=== PATIENT | female | born 2000 | race Caucasian/White ===

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

== ENCOUNTER 2021-12-12 00:21 | Inpatient (IN) | payer BC, OTHER ==
[~2021-12-12] VITALS: Ht 160 cm; Wt 83.9 kg
--- NOTE | ~2021-12-12 | OR ---
[facility] [address], [place] [address] Draft DATE OF OPERATION: 12/12/2021 SURGEON: Rommel Molina DO PLATFORM INSPECTOR: Miesha. PROCEDURE: Primary low transverse . PREOPERATIVE DIAGNOSIS: intolerance to labor, remote from delivery, anxiety and depression, 39 weeks gestation. POSTOPERATIVE DIAGNOSIS: Term , delivered, anxiety and depression, viable term male . ANESTHESIA: Epidural. BLOOD LOSS: 500 mL. COMPLICATIONS: None. FINDINGS: Viable term male weighing 5 pounds 14 ounces in an asynclitic left occiput posterior position. Apgars 7 and 9 at 1 and 5 minutes respectively. Normal-appearing bilateral tubes and ovaries. No evidence of intra-abdominal adhesions. INDICATION: Recurrent variables, nonresponsive to amnioinfusion, IV fluid bolus, maternal repositioning, remote from delivery. DESCRIPTION OF PROCEDURE: The patient was taken back to the operating room. She was given clindamycin and azithromycin. She was positioned in supine position with a leftward tilt. Epidural was bolused per anesthesia. She was prepped and draped in normal sterile fashion. A Pfannenstiel incision was made with a scalpel and carried down to the underlying layer PATIENT NAME: MICKEY NORTH OPERATIVE REPORT DATE OF : 01 REPORT #: [id number] PHYSICIAN: ROMMEL MOLINA DO PCP: MELANIE BUCIO PAC REPORT IS CONFIDENTIAL AND NOT TO BE RELEASED WITHOUT AUTHORIZATION [facility] [address], [place] [address] Draft of fascia, which was nicked in midline, extended laterally with Hillman scissors. Inferior margin of fascia was grasped and elevated with Kevon clamps. Underlying rectus muscle was dissected off with blunt and sharp dissection with Hillman scissors. Inferior margin was released. The superior margin was grasped, elevated with Kevon clamps. Underlying rectus muscle dissected off with blunt and sharp dissection with Hillman scissors. Peritoneum was entered bluntly and extended with lateral traction. Romel retractor was placed without difficulty. Hysterotomy was made with a scalpel with entry into the uterus performed bluntly. This was extended laterally with inferior and superior traction. 's head was elevated with slight difficulty due to the asynclitic positioning hysterotomy and delivered through without further difficulty. No nuchal cord was noted. Cord was immediately clamped and cut and baby was handed off to awaiting nursery personnel including respiratory therapist and security field supervisor for further resuscitation. Cord blood was collected for type and Anna and segment of cord was set aside, doubly clamped for cord gases, which were collected. Placenta was manually extracted and noted to be intact with marginal insertion. Uterus was cleared of clots and debris. Hysterotomy was closed in two layer closure, 1st with 0 Monocryl in a running locked fashion, second layer with 0 Monocryl in an imbricating manner. Oozing was noted at the midline and a [id number] suture was placed with 0 Monocryl with resulting hemostasis. The pelvis was suction irrigated with warm sterile saline with hemostasis again noted. Romel retractor was removed. Peritoneum was closed with 2-0 Vicryl in a running fashion. Rectus muscle was then suction irrigated with warm sterile saline. Perforating vessels cauterized with Bovie cautery. Rectus was reapproximated at midline with 0 Vicryl in a simple interrupted fashion x2 sutures stitches. Fascia was closed with two separate sutures working 1st from right apex to midline and from left apex midline meeting in the middle. Subcutaneous layer was inspected and suction irrigated with warm sterile saline. Perforating vessels were cauterized with Bovie cautery. Once hemostatic, subcutaneous layer was reapproximated with 3-0 Vicryl in a running fashion. The skin was closed with skin clips. Uterus was Crede'd with minimal bleeding noted. Sponge and instrument counts were correct x2 and the patient remained in the OR for a TAP block placement per Anesthesia. DO CJ Sosa/PAYTONL /[id number] PATIENT NAME: MICKEY NORTH OPERATIVE REPORT DATE OF : 01 REPORT #: [id number] PHYSICIAN: ROMMEL MOLINA DO PCP: MELANIE BUCIO PAC REPORT IS CONFIDENTIAL AND NOT TO BE RELEASED WITHOUT AUTHORIZATION [facility] [address], [place] [address] Draft Copies: ~ PATIENT NAME: CANMICKEY OPERATIVE REPORT DATE OF : 01 REPORT #: [id number] PHYSICIAN: ROMMEL MOLINA DO PCP: MELANIE BUCIO PAC REPORT IS CONFIDENTIAL AND NOT TO BE RELEASED WITHOUT AUTHORIZATION
[~2021-12-12 00:21] MED LIST changes: +MACROBID 100 M100 MG PO; +PRENATAL GUMMI1 EACH PO
--- NOTE | 2021-12-12 00:51 | NUR ---
COVID 19 SWAB DONE TO BOTH NARES AND SENT TO IN HOUSE LAB.
--- NOTE | 2021-12-12 13:14 | PR ---
[facility] [address] [place], [place] [address] Signed Progress Notes IP Datetime Report Generated by CPN: 12/12/2021 13:14 PROGRESS NOTES: [id number] Impression: Normal Progression of Labor; Reassuring Heart Rate Plan: Continue Present Management VITAL SIGNS: [id number] Vital Signs: Reviewed; Within Normal Limits EXAM: [id number] Dilatation: 2.5 Effacement: 80 Station: -1 Contractions: ctx q 2-3 min MEMBRANES: [id number] Membranes Status: Ruptured Comments: Progressing well, s/p cytotec x 3, then SROM at 1200. Plan recheck at 2pm, sooner if needed. Epidural ok upon request, discussed bath, movement for pain mgmt in the meantime. Currently on the birthing ball breathing through contractions. FETUS A: [id number] FHR Baseline: 120 Variability: Moderate 6-25bpm Accelerations: 15X15 Decelerations: None FHR Category: Category I Presentation: Vertex Comments on Fetus A: No evidence of acidemia FETUS B: [id number] Signing Physician: Rommel Molina DO Copies: ~ *Electronically Signed* 12/12/21 1314 ROMMEL MOLINA DO PATIENT NAME: MICKEY NORTH PROGRESS NOTE DATE OF : 01 PHYSICIAN: ROMMEL MOLINA DO RPT #: [id number] REPORT IS CONFIDENTIAL AND NOT TO BE RELEASED WITHOUT AUTHORIZATION
--- NOTE | 2021-12-12 18:28 | PR ---
[facility] [address] [facility] [place], [place] [address] Signed Progress Notes IP Datetime Report Generated by CPN: 12/12/2021 18:28 PROGRESS NOTES: [id number] Impression: Normal Progression of Labor; Reassuring Heart Rate Plan: Continue Present Management VITAL SIGNS: [id number] Vital Signs: Reviewed; Within Normal Limits EXAM: [id number] Dilatation: 6.5 Effacement: 90 Station: -2 Contractions: ctx q 2-3 min MEMBRANES: [id number] Membranes Status: Ruptured Comments: Progressing well. Comfortable with epidural, not feeling contractions. FETUS A: [id number] FHR Baseline: 120 Variability: Moderate 6-25bpm Accelerations: 15X15 Decelerations: None FHR Category: Category I Presentation: Vertex Comments on Fetus A: No evidence of acidemia FETUS B: [id number] Signing Physician: Rommel Molina DO Copies: ~ *Electronically Signed* 12/12/21 1828 ROMMEL MOLINA DO PATIENT NAME: CANMICKEY PROGRESS NOTE DATE OF : 01 PHYSICIAN: ROMMEL MOLINA DO [facility] #: [id number] REPORT IS CONFIDENTIAL AND NOT TO BE RELEASED WITHOUT AUTHORIZATION
--- NOTE | 2021-12-12 20:16 | PR ---
[facility] [address] [facility] [place], [place] [address] Signed Progress Notes IP Datetime Report Generated by CPN: 12/12/2021 20:16 PROGRESS NOTES: [id number] Impression: Reassuring Heart Rate Plan: Continue Present Management VITAL SIGNS: [id number] Vital Signs: Reviewed; Within Normal Limits EXAM: [id number] Dilatation: 7.0 Effacement: 90 Station: -2 Contractions: ctx q 2-3 min MEMBRANES: [id number] Membranes Status: Ruptured Comments: S/p cytotec x 3, SROM, epidural Steady cervical dilation, comfortable with epidural Continue maternal repositioning Recheck in 1 hour FETUS A: [id number] FHR Baseline: 120 Variability: Moderate 6-25bpm Accelerations: 15X15 Decelerations: None FHR Category: Category I Presentation: Vertex Comments on Fetus A: No evidence of acidemia FETUS B: [id number] Signing Physician: Rommel Molina DO Copies: ~ *Electronically Signed* 12/12/21 ROMMEL SANCHEZ DO PATIENT NAME: MICKEY NORTH PROGRESS NOTE DATE OF : 01 PHYSICIAN: ROMMEL MOLINA DO RPT #: [id number] REPORT IS CONFIDENTIAL AND NOT TO BE RELEASED WITHOUT AUTHORIZATION
--- NOTE | 2021-12-12 21:12 | PR ---
[facility] [address] [place], [place] [address] Signed Progress Notes IP Datetime Report Generated by CPN: 12/12/2021 21:12 PROGRESS NOTES: [id number] Impression: Reassuring Heart Rate Procedures: Intrauterine Pressure Catheter; Amnio Infusion Plan: Continue Present Management VITAL SIGNS: [id number] Vital Signs: Reviewed; Within Normal Limits EXAM: [id number] Dilatation: 7.0 Effacement: 90 Station: -2 Contractions: ctx q 2-3 min MEMBRANES: [id number] Membranes Status: Intact Comments: Pt comfortable with epidural, still not feeling contractions Discussed poor tracing of contractions, IUPC placed without difficulty. Audible deep decelerations present with contractions, discussed amnioinfusion with initial bolus [id number] over 30 minutes, than 125mL/hR. Maternal IVB fluid bolus with 500mL initiated. Pt elects to proceed FETUS A: [id number] FHR Baseline: 120 Variability: Moderate 6-25bpm Accelerations: 15X15 Decelerations: None FHR Category: Category I Presentation: Vertex Comments on Fetus A: No evidence of acidemia FETUS B: [id number] Signing Physician: Rommel Molina DO Copies: ~ *Electronically Signed* 12/12/212111 ROMMEL MOLINA DO PATIENT NAME: MICKEY NORTH PROGRESS NOTE DATE OF : 01 PHYSICIAN: ROMMEL MOLINA DO RPT #: [id number] REPORT IS CONFIDENTIAL AND NOT TO BE RELEASED WITHOUT AUTHORIZATION
--- NOTE | 2021-12-12 21:33 | PR ---
[facility] [address] [place], [place] [address] Signed Progress Notes IP Datetime Report Generated by CPJohnathan: 12/12/2021 21:33 PROGRESS NOTES: [id number] Impression: Non-reassuring Heart Rate Procedures: Intrauterine Pressure Catheter; Amnio Infusion Plan: Deliver- Section VITAL SIGNS: [id number] Vital Signs: Reviewed; Within Normal Limits EXAM: [id number] Dilatation: 7.0 Effacement: 90 Station: -2 Contractions: ctx q 2-3 min MEMBRANES: [id number] Membranes Status: Ruptured Comments: Recheck with worsening/ deepening variables. Cervix with no additional dilation, beginning to swell. Terbutaline administered Risks, benefits, alternatives to non-reassuring heart tones remote from delivery were discussed with pt and her sister, at bedside. Discussed increased risks of bleeding, infection, pain, damage to surrounding structures. Discussed we do not perform TOLAC at this hospital, future delivery would be via repeat . Pt verbalizes understanding and elects to proceed with . Confirmed anaphylaxis to penicillin, unknown tolerance of cephalosporins. Ordered azithromycin and clindamycin. Anticipate TXA 1g with delivery. Anesthesia notified, OR crew called for Stat . FETUS A: [id number] FHR Baseline: 120 Variability: Moderate 6-25bpm Accelerations: 15X15 Decelerations: None FHR Category: Category I Presentation: Vertex Comments on Fetus A: No evidence of acidemia FETUS B: [id number] Signing Physician: Rommel Molina DO *Electronically Signed* 12/12/212132 ROMMEL MOLINA DO PATIENT NAME: CANMICKEY PROGRESS NOTE DATE OF : 01 PHYSICIAN: ROMMEL MOLINA DO RPT #: [id number] REPORT IS CONFIDENTIAL AND NOT TO BE RELEASED WITHOUT AUTHORIZATION
--- NOTE | 2021-12-12 23:47 | NUR ---
12/12/21 2347 Natalia Garcia 2258-PATIENT BACK TO ROOM 5 ON RA. PATIENT IS AWAKE. RESP EVEN AND UNLABORED. PATIENT VERY SHAKY. UNABLE TO OBTAIN A ACCURATE BP AT THIS TIME. BED PLUGGED IN AND BED RAILS UP. 2300-PATIENT CONTINUES TO SHAKY. UNABLE TO OBTAIN ACCURATE BP AT THIS TIME. 2305-BP CUFF REPOSITIONED AND [facility] RN HELPING KEEP PATIENT'S ARM STILL. VSS. 2310-HOB ELEVATED. PATIENT HOLDING BABY. PATIENT IS NO LONGER SHAKING. PATIENT DENIES PAIN OR NAUSEA. 2320-PATIENT IS NURSING. DENIES PAIN OR NAUSEA. 2330-PATIENT IS NURSING. NO OTHER NEEDS AT THIS TIME. REPORT GIVEN TO [facility] RN.
--- NOTE | 2021-12-13 09:59 | PR ---
[facility] [facility] [address] [facility] [address] [facility] [place], [place] [address] Signed PP Progress Notes Datetime Report Generated by CPN: 12/13/2021 09:59 SUBJECTIVE: [id number] Pain: Within Normal Limits Nausea/Vomiting: Denies Flatus: No Bowel Movement: No Vital Signs: [id number] Vital Signs: Reviewed; Within Normal Limits Cardiovascular: Normal Respiratory: Normal Abdomen/Uterus: Normal Lochia: Normal Breasts: Normal Extremities: Normal Incision: Normal Progress: Normal Exam Comments: NAD, standing at bedside by bassinet RRR No dyspnea/ retractions FFBU, Abd SNTND Incision c/d/i, dressing without strikethrough Ext: trace edema BL IMPRESSION/PLAN/PROCEDURES: [id number] Impression: Normal Progression; Difficulties Plan: Continue Present Management; Consult Progress Notes: Pt is a 21 yo POD#1 s/p PLTCS for intolerance to labor - Signing Physician: Rommel Molina DO Copies: ~ *Electronically Signed* 12/13/21 0959 ROMMEL MOLINA DO PATIENT NAME: MICKEY NORTH PROGRESS NOTE DATE OF : 01 PHYSICIAN: ROMMEL MOLINA DO RPT #: [id number] REPORT IS CONFIDENTIAL AND NOT TO BE RELEASED WITHOUT AUTHORIZATION
--- NOTE | 2021-12-14 12:29 | PR ---
[facility] [address] [place], [place] [address] Signed PP Progress Notes Datetime Report Generated by CPN: 12/14/2021 12:29 SUBJECTIVE: [id number] Pain: Within Normal Limits Nausea/Vomiting: Denies Flatus: Yes Bowel Movement: No Vital Signs: [id number] Vital Signs: Reviewed; Within Normal Limits Cardiovascular: Normal Respiratory: Normal Abdomen/Uterus: Normal Lochia: Normal Breasts: Normal Extremities: Normal Incision: Normal Progress: Abnormal Exam Comments: NAD, sitting up in bed nursing baby RRR No dyspnea/ retractions Abd SNTND, FFBU Incision c/d/i, moderate superficial bruising superior and inferior to incision Neg Mahsa's BL IMPRESSION/PLAN/PROCEDURES: [id number] Impression: Normal Progression Plan: Continue Present Management; Consult Progress Notes: POD#2 s/p PLTCS for NRFHT -continue efforts/ support -ambulating, voiding, tolerating regular diet, +flatus, pain well-controlled with orals -undecided re: contraception Anticipate DC to home tomorrow Signing Physician: Rommel Molina DO *Electronically Signed* 12/14/21 1229 ROMMEL MOLINA DO PATIENT NAME: MICKEY NORTH PROGRESS NOTE DATE OF : 01 PHYSICIAN: ROMMEL MOLINA DO RPT #: [id number] REPORT IS CONFIDENTIAL AND NOT TO BE RELEASED WITHOUT AUTHORIZATION
--- NOTE | 2021-12-15 11:33 | PR ---
[facility] [address] [place], [place] [address] Signed PP Progress Notes Datetime Report Generated by CPN: 12/15/2021 11:33 SUBJECTIVE: [id number] Pain: Within Normal Limits Nausea/Vomiting: Denies Flatus: Yes Bowel Movement: No Vital Signs: [id number] Vital Signs: Reviewed; Within Normal Limits Cardiovascular: Normal Respiratory: Normal Abdomen/Uterus: Normal Lochia: Normal Breasts: Normal Extremities: Normal Incision: Normal Progress: Normal Exam Comments: NAD, sitting up in bed nursing baby RRR No dyspnea/ retractions Abd SNTND, FFBU Incision c/d/i, moderate superficial bruising superior and inferior to incision Neg Mahsa's BL IMPRESSION/PLAN/PROCEDURES: [id number] Impression: Normal Progression Plan: Continue Present Management; Discharge Progress Notes: POD#3 s/p PLTCS -ambulating, voiding, tolerating regular diet. Pain controlled with orals, +flatus, awaiting BM -reviewed bruising, plan for staple removal in office on Sunday -undecided re: contraception -breast and bottle feeding Signing Physician: Rommel Molina DO Copies: ~ *Electronically Signed* 12/15/21 1133 ROMMEL MOLINA DO PATIENT NAME: MICKEY NORTH PROGRESS NOTE DATE OF : 01 PHYSICIAN: ROMMEL MOLINA DO RPT #: [id number] REPORT IS CONFIDENTIAL AND NOT TO BE RELEASED WITHOUT AUTHORIZATION
== END 2021-12-15 13:45 | disposition home or self-care (01) | DRG 787 ==
LOC: FBC 00:21
PROVIDERS: ADMIT Obstetrics & Gynecology; ATTEND Obstetrics & Gynecology
PROC: 10H07YZ Insertion of Other Device into Products of Conception, Via Natural or Artificial Opening (ICD-10-PCS; 2021-12-12)
PROC: 10D00Z1 Extraction of Products of Conception, Low, Open Approach (ICD-10-PCS; principal; 2021-12-12 21:45)
DX: O76 Abnormality in fetal heart rate and rhythm complicating labor and delivery (principal); O99.324 Drug use complicating childbirth; Z3A.39 39 weeks gestation of pregnancy; Z37.0 Single live birth; O99.344 Other mental disorders complicating childbirth; F32.A Depression, unspecified; F41.9 Anxiety disorder, unspecified; Z20.822 Contact with and (suspected) exposure to COVID-19; Z88.0 Allergy status to penicillin; Z87.891 Personal history of nicotine dependence; Z90.49 Acquired absence of other specified parts of digestive tract; F12.90 Cannabis use, unspecified, uncomplicated
CPT/HCPCS: 36415; 76942; 82803; 85027; 86850; 86900; 86901; 87502; A9270; C9803; J0456; J1100; J1885; J2001; J2175; J2274; J2370; J2405; J2550; J2590; J2795; J3010; J3105; J7121; U0003

== ENCOUNTER 2022-06-12 13:48 | Emergency (ER) | payer BC, OTHER ==
[~2022-06-12] VITALS: Ht 152.4 cm; Wt 78.0 kg
[2022-06-12 15:54] VITALS: BP 118/77
== END 2022-06-12 15:56 | disposition home or self-care (01) ==
LOC: ED 13:48
DX: S93.401A Sprain of unspecified ligament of right ankle, initial encounter (principal); X50.0XXA Overexertion from strenuous movement or load, initial encounter; Z88.0 Allergy status to penicillin
CPT/HCPCS: 73610

== ENCOUNTER 2022-09-12 16:44 | Emergency (ER) | payer BC, OTHER ==
[~2022-09-12] VITALS: Ht 152.4 cm; Wt 68.0 kg
--- OUTSIDE RECORDS SUMMARY | ~2022-09-12 | XMS | Continuity of Care Document ---
Demographics + + + | Address | [address] | | | [place] [address] | + + + | Preferred Language | Unknown | + + + | Marital Status | Never | + + + | Shinto Affiliation | Unknown | + + + | Race | White | + + + | Ethnic Group | Not or | + + + Author + + + | Author | [facility] | + + + | Organization | [facility] | + + + | Address | [address] | | | [place] [address] | + + + | Phone | | + + + Care Team Providers + + + + | [facility] Facilities Manager Name | Role | Phone | + + + + Unavailable | Unavailable | + + + + Unavailable | Unavailable | + + + + Allergies and Intolerances + + + + + + | date | description | facility | reaction | severity | + + + + + + | (no date) | Penicillin | [facility] | (no reaction) | (no severity) | | [facility] | | | + + + + + + | (no date) | Penicillin | [facility] | (no reaction) | (no severity) | | | [facility] | | | + + + + + + | (no date) | Penicillin | [facility] | (no reaction) | (no severity) | | | [facility] | | | + + + + + + | (no date) | Penicillin | [facility] | (no reaction) | (no severity) | | | [facility] | | | + + + + + + Encounters No information. Functional Status No information. Immunizations No information. Medications + + + + | date | description | facility | + + + + | 2019-07-06 00:00 | OXYCODONE | [facility] | | | HCL/ACETAMINOPHEN | | + + + + | 2019-07-06 00:00 | ACETAMINOPHEN | [facility] | + + + + | 2019-07-06 00:00 | FLUCONAZOLE | [facility] | + + + + | 2016-12-21 00:00 | BENZONATATE | [facility] | + + + + | 2017-04-27 00:00 | AZITHROMYCIN | [facility] | + + + + | 2017-04-27 00:00 | METHYLPREDNISOLONE | [facility] | + + + + | 2019-07-06 00:00 | CLINDAMYCIN HCL | [facility] | + + + + | 2019-07-06 00:00 | METRONIDAZOLE | [facility] | + + + + | 2021-10-30 00:00 | NITROFURANTOIN MONOHYD | [facility] | | | MACROCR | | + + + + | 2017-04-27 00:00 | Codeine | [facility] | | | Phosphate/Guaifenesin | | + + + + Problems + + + + | date | description | facility | + + + + | 2016-07-26 00:00 | Urinary tract infection | [facility] | + + + + | 2016-12-21 00:00 | Adverse effect of drug | [facility] | + + + + | 2017-04-27 00:00 | Serous otitis media | [facility] | + + + + | 2017-04-27 00:00 | Bronchitis | [facility] | + + + + | 2017-08-02 00:00 | Encounter for medical | [facility] | | | screening examination | | + + + + | 2022-06-12 00:00 | Sprain of ankle | [facility] | + + + + Procedures + + + + | date | description | facility | + + + + | 2021-12-12 00:00 | section | [facility] | + + + + | 2021-12-12 00:00 | section | [facility] | + + + + Results/Labs +--------+--------+ +---------+--------+---------+ | test | date | facility | value | unit | notes | +--------+--------+ +---------+--------+---------+ + + | Result panel 1 | + + + + + + + + + | | 2021-10-30 | [facility] | NEGATIVE | (missing) | (missing) | | (unavailable | 13:39 | [facility] | | | | + + + + + + + + + | Result panel 2 | + + + + + + + + + | | 2021-10-30 | [facility] | NEGATIVE | (missing) | (missing) | | (unavailable | 13:39 | [facility] | | | | + + + + + + + + + | Result panel 3 | + + + + + + + + + | | 2021-10-30 | [facility] | NEGATIVE | (missing) | (missing) | | (unavailable | 13:39 | [facility] | | | | + + + + + + + + + | Result panel 4 | + + + + + + + + + | | 2021-10-30 | [facility] | NEGATIVE | (missing) | (missing) | | (unavailable | 13:39 | [facility] | | | | + + + + + + + + + | Result panel 5 | + + + + + +-------+ + + | | 2021-10-30 | [facility] | Yes | (missing) | (missing) | | (unavailable | 13:40 | [facility] | | | | + + + +-------+ + + + + | Result panel 6 | + + + + + + + + + | | 2021-10-30 | [facility] | CLEAN CATCH | (missing) | (missing) | | (unavailable | 13:40 | [facility] | | | | + + + + + + + + + | Result panel 7 | + + + + + +-------+ + + | | 2021-10-30 | [facility] | 7.8 | (missing) | (missing) | | (unavailable | 13:40 | [facility] | | | | + + + +-------+ + + + + | Result panel 8 | + + + + + +-------+ + + | | 2021-10-30 | [facility] | 3.1 | (missing) | (missing) | | (unavailable | 13:40 | [facility] | | | | + + + +-------+ + + + + | Result panel 9 | + + + + + +-------+ + + | | 2021-10-30 | [facility] | 4.7 | (missing) | (missing) | | (unavailable | 13:40 | [facility] | | | | + + + +-------+ + + + + | Result panel 10 | + + + + + +--------+ + + | | 2021-10-30 | [facility] | 0.66 | (missing) | (missing) | | (unavailable | 13:40 | [facility] | | | | + + + +--------+ + + + + | Result panel 11 | + + + + + +-------+ + + | | 2021-10-30 | [facility] | 0.4 | (missing) | (missing) | | (unavailable | 13:40 | [facility] | | | | + + + +-------+ + + + + | Result panel 12 | + + + + + +-------+---------+ + | | 2021-10-30 | [facility] | 0.1 | mg/dL | (missing) | | (unavailable | 13:40 | [facility] | | | | + + + +-------+---------+ + + + | Result panel 13 | + + + + + +-------+ + + | | 2021-10-30 | [facility] | 0.3 | (missing) | (missing) | | (unavailable | 13:40 | [facility] | | | | + + + +-------+ + + + + | Result panel 14 | + + + + + +------+ + + | | 2021-10-30 | [facility] | 22 | (missing) | (missing) | | (unavailable | 13:40 | [facility] | | | | + + + +------+ + + + + | Result panel 15 | + + + + + +------+ + + | | 2021-10-30 | [facility] | 19 | (missing) | (missing) | | (unavailable | 13:40 | [facility] | | | | + + + +------+ + + + + | Result panel 16 | + + + + + +-------+ + + | | 2021-10-30 | [facility] | 156 | (missing) | (missing) | | (unavailable | 13:40 | [facility] | | | | + + + +-------+ + + + + | Result panel 17 | + + + + + +--------+ + + | | 2021-10-30 | [facility] | 15.3 | (missing) | (missing) | | (unavailable | 14:17 | [facility] | | | | + + + +--------+ + + + + | Result panel 18 | + + + + + +--------+ + + | | 2021-10-30 | [facility] | 85.1 | (missing) | (missing) | | (unavailable | 14:17 | [facility] | | | | + + + +--------+ + + + + | Result panel 19 | + + + + + +-------+ + + | | 2021-10-30 | [facility] | 8.6 | (missing) | (missing) | | (unavailable | 14:17 | [facility] | | | | + + + +-------+ + + + + | Result panel 20 | + + + + + +-------+ + + | | 2021-10-30 | [facility] | 5.8 | (missing) | (missing) | | (unavailable | 14:17 | [facility] | | | | + + + +-------+ + + + + | Result panel 21 | + + + + + +-------+ + + | | 2021-10-30 | [facility] | 0.2 | (missing) | (missing) | | (unavailable | 14:17 | [facility] | | | | + + + +-------+ + + + + | Result panel 22 | + + + + + +-------+ + + | | 2021-10-30 | [facility] | 0.3 | (missing) | (missing) | | (unavailable | 14:17 | [facility] | | | | + + + +-------+ + + + + | Result panel 23 | + + + + + +--------+ + + | | 2021-10-30 | [facility] | 4.20 | (missing) | (missing) | | (unavailable | 14:17 | [facility] | | | | + + + +--------+ + + + + | Result panel 24 | + + + + + +--------+ + + | | 2021-10-30 | [facility] | 11.7 | (missing) | (missing) | | (unavailable | 14:17 | [facility] | | | | + + + +--------+ + + + + | Result panel 25 | + + + + + +------+---------+ + | | 2021-10-30 | [facility] | 74 | mg/dL | (missing) | | (unavailable | 14:17 [facility] | | | | + + + +------+---------+ + + + | Result panel 26 | + + + + + +-----+---------+ + | | 2021-10-30 | [facility] | 6 | mg/dL | (missing) | | (unavailable | 14:17 | [facility] | | | | + + + +-----+---------+ + + + | Result panel 27 | + + + + + +--------+---------+ + | | 2021-10-30 | [facility] | 0.49 | mg/dL | (missing) | | (unavailable | 14:17 | [facility] | | | | + + + +--------+---------+ + + + | Result panel 28 | + + + + + +-------+ + + | | 2021-10-30 | [facility] | 138 | (missing) | (missing) | | (unavailable | 14:17 | [facility] | | | | + + + +-------+ + + + + | Result panel 29 | + + + + + +---------+ + + | | 2021-10-30 | [facility] | 12.24 | (missing) | (missing) | | (unavailable | 14:17 | [facility] | | | | + + + +---------+ + + + + | Result panel 30 | + + + + + +--------+ + + | | 2021-10-30 | [facility] | 35.9 | (missing) | (missing) | | (unavailable | 14:17 | [facility] | | | | + + + +--------+ + + + + | Result panel 31 | + + + + + +-------+ + + | | 2021-10-30 | [facility] | 133 | (missing) | (missing) | | (unavailable | 14:17 | [facility] | | | | + + + +-------+ + + + + | Result panel 32 | + + + + + +-------+ + + | | 2021-10-30 | [facility] | 3.5 | (missing) | (missing) | | (unavailable | 14:17 | [facility] | | | | + + + +-------+ + + + + | Result panel 33 | + + + + + +------+ + + | | 2021-10-30 | [facility] | 98 | (missing) | (missing) | | (unavailable | 14:17 | [facility] | | | | + + + +------+ + + + + | Result panel 34 | + + + + + +------+ + + | | 2021-10-30 | [facility] | 26 | (missing) | (missing) | | (unavailable | 14:17 | [facility] | | | | + + + +------+ + + + + | Result panel 35 | + + + + + +--------+ + + | | 2021-10-30 | [facility] | 12.5 | (missing) | (missing) | | (unavailable | 14:17 | [facility] | | | | + + + +--------+ + + + + | Result panel 36 | + + + + + +-------+---------+ + | | 2021-10-30 | [facility] | 9.1 | mg/dL | (missing) | | (unavailable | 14:17 | [facility] | | | | + + + +-------+---------+ + + + | Result panel 37 | + + + + + +--------+ + + | | 2021-10-30 | [facility] | 85.6 | (missing) | (missing) | | (unavailable | 14:17 | [facility] | | | | + + + +--------+ + + + + | Result panel 38 | + + + + + +--------+ + + | | 2021-10-30 | [facility] | 27.9 | (missing) | (missing) | | (unavailable | 14:17 | [facility] | | | | + + + +--------+ + + + + | Result panel 39 | + + + + + +--------+ + + | | 2021-10-30 | [facility] | 32.6 | (missing) | (missing) | | (unavailable | 14:17 | [facility] | | | | + + + +--------+ + + + + | Result panel 40 | + + + + + +--------+ + + | | 2021-10-30 | [facility] | 13.7 | (missing) | (missing) | | (unavailable | 14:17 | [facility] | | | | + + + +--------+ + + + + | Result panel 41 | + + + + + +-------+ + + | | 2021-10-30 | [facility] | 171 | (missing) | (missing) | | (unavailable | 14:17 | [facility] | | | | + + + +-------+ + + + + | Result panel 42 | + + + + + + + + + | | 2021-10-30 | [facility] | YELLOW | (missing) | (missing) | | (unavailable | 15:13 | [facility] | | | | + + + + + + + + + | Result panel 43 | + + + + + +---------+ + + | | 2021-10-30 | [facility] | CLEAR | (missing) | (missing) | | (unavailable | 15:13 | [facility] | | | | + + + +---------+ + + + + | Result panel 44 | + + + + + + + + + | | 2021-10-30 | [facility] | NEGATIVE | (missing) | (missing) | | (unavailable | 15:13 | [facility] | | | | + + + + + + + + + | Result panel 45 | + + + + + + + + + | | 2021-10-30 | [facility] | NEGATIVE | (missing) | (missing) | | (unavailable | 15:13 | [facility] | | | | + + + + + + + + + | Result panel 46 | + + + + + +--------+ + + | | 2021-10-30 | [facility] | >=80 | (missing) | (missing) | | (unavailable | 15:13 | [facility] | | | | + + + +--------+ + + + + | Result panel 47 | + + + + + +---------+ + + | | 2021-10-30 | [facility] | 1.010 | (missing) | (missing) | | (unavailable | 15:13 | [facility] | | | | + + + +---------+ + + + + | Result panel 48 | + + + + + + + + + | | 2021-10-30 | [facility] | NEGATIVE | (missing) | (missing) | | (unavailable | 15:13 | [facility] | | | | + + + + + + + + + | Result panel 49 | + + + + + +-------+ + + | | 2021-10-30 | [facility] | 6.5 | (missing) | (missing) | | (unavailable | 15:13 | [facility] | | | | + + + +-------+ + + + + | Result panel 50 | + + + + + + + + + | | 2021-10-30 | [facility] | NEGATIVE | (missing) | (missing) | | (unavailable | 15:13 | [facility] | | | | + + + + + + + + + | Result panel 51 | + + + + + + + + + | | 2021-10-30 | [facility] | NORMAL | (missing) | (missing) | | (unavailable | 15:13 | [facility] | | | | + + + + + + + + + | Result panel 52 | + + + + + + + + + | | 2021-10-30 | [facility] | NEGATIVE | (missing) | (missing) | | (unavailable | 15:13 | [facility] | | | | + + + + + + + + + | Result panel 53 | + + + + + +---------+ + + | | 2021-10-30 | [facility] | SMALL | (missing) | (missing) | | (unavailable | 15:13 | [facility] | | | | + + + +---------+ + + + + | Result panel 54 | + + + + + +-------+ + + | | 2021-10-30 | [facility] | 0-1 | (missing) | (missing) | | (unavailable | 15:13 | [facility] | | | | + + + +-------+ + + + + | Result panel 55 | + + + + + +--------+ + + | | 2021-10-30 | [facility] | 7-11 | (missing) | (missing) | | (unavailable | 15:13 | [facility] | | | | + + + +--------+ + + + + | Result panel 56 | + + + + + + + + + | | 2021-10-30 | [facility] | SQUAMOUS 2+ | (missing) | (missing) | | (unavailable | 15:13 | [facility] | | | | + + + + + + + + + | Result panel 57 | + + + + + + + + + | | 2021-10-30 | [facility] | NONE SEEN | (missing) | (missing) | | (unavailable | 15:13 | [facility] | | | | + + + + + + + + + | Result panel 58 | + + + + + +------+ + + | | 2021-10-30 | [facility] | 1+ | (missing) | (missing) | | (unavailable | 15:13 | [facility] | | | | + + + +------+ + + + + | Result panel 59 | + + + + + + + + + | | 2021-10-30 | [facility] | NONE SEEN | (missing) | (missing) | | (unavailable | 15:13 | [facility] | | | | + + + + + + + + + | Result panel 60 | + + + + + + + + + | | 2021-12-12 | [facility] | POSITIVE | (missing) | (missing) | | (unavailable | 00:20 | [facility] | | | | + + + + + + + + + | Result panel 61 | + + + + + + + + + | | 2021-12-12 | [facility] | NEGATIVE | (missing) | (missing) | | (unavailable | 00:20 | [facility] | | | | + + + + + + + + + | Result panel 62 | + + + + + + + + + | | 2021-12-12 | [facility] | NEGATIVE | (missing) | (missing) | | (unavailable | 00:20 | [facility] | | | | + + + + + + + + + | Result panel 63 | + + + + + + + + + | | 2021-12-12 | [facility] | NEGATIVE | (missing) | (missing) | | (unavailable | 00:20 | [facility] | | | | + + + + + + + + + | Result panel 64 | + + + + + + + + + | | 2021-12-12 | [facility] | NEGATIVE | (missing) | (missing) | | (unavailable | 00:20 | [facility] | | | | + + + + + + + + + | Result panel 65 | + + + + + + + + + | | 2021-12-12 | [facility] | NEGATIVE | (missing) | (missing) | | (unavailable | 00:20 | [facility] | | | | + + + + + + + + + | Result panel 66 | + + + + + + + + + | | 2021-12-12 | [facility] | NEGATIVE | (missing) | (missing) | | (unavailable | 00:20 | [facility] | | | | + + + + + + + + + | Result panel 67 | + + + + + + + + + | | 2021-12-12 | [facility] | NEGATIVE | (missing) | (missing) | | (unavailable | 00:20 | [facility] | | | | + + + + + + + + + | Result panel 68 | + + + + + + + + + | | 2021-12-12 | [facility] | NEGATIVE | (missing) | (missing) | | (unavailable | 00:20 | [facility] | | | | + + + + + + + + + | Result panel 69 | + + + + + + + + + | | 2021-12-12 | [facility] | NEGATIVE | (missing) | (missing) | | (unavailable | 00:20 | [facility] | | | | + + + + + + + + + | Result panel 70 | + + + + + + + + + | | 2021-12-12 | [facility] | NEGATIVE | (missing) | (missing) | | (unavailable | 00:20 | [facility] | | | | + + + + + + + + + | Result panel 71 | + + + + + + + + + | | 2021-12-12 | [facility] | NEGATIVE | (missing) | (missing) | | (unavailable | 00:20 | [facility] | | | | + + + + + + + + + | Result panel 72 | + + + + + + + + + | | 2021-12-12 | [facility] | NEGATIVE | (missing) | (missing) | | (unavailable | 00:20 | [facility] | | | | + + + + + + + + + | Result panel 73 | + + + + + +-----+ + + | | 2021-12-12 | [facility] | O | (missing) | (missing) | | (unavailable | 00:35 | [facility] | | | | + + + +-----+ + + + + | Result panel 74 | + + + + + + + + + | | 2021-12-12 | [facility] | POSITIVE | (missing) | (missing) | | (unavailable | 00:35 | [facility] | | | | + + + + + + + + + | Result panel 75 | + + + + + + + + + | | 2021-12-12 | [facility] | NEGATIVE | (missing) | (missing) | | (unavailable | 00:35 | [facility] | | | | + + + + + + + + + | Result panel 76 | + + + + + + + + + | | 2021-12-12 | [facility] | BLOOD IN | (missing) | (missing) | | (unavailable | 00:35 | [facility] | | | | + + + + + + + + + | Result panel 77 | + + + + + + + + + | | 2021-12-12 | [facility] | NEGATIVE | (missing) | (missing) | | (unavailable | 00:44 | [facility] | | | | + + + + + + + + + | Result panel 78 | + + + + + + + + + | | 2021-12-12 | [facility] | NEGATIVE | (missing) | (missing) | | (unavailable | 00:44 | [facility] | | | | + + + + + + + + + | Result panel 79 | + + + + + + + + + | | 2021-12-12 | [facility] | NEGATIVE | (missing) | (missing) | | (unavailable | 00:44 | [facility] | | | | + + + + + + + + + | Result panel 80 | + + + + + + + + + | | 2021-12-12 | [facility] | NEGATIVE | (missing) | (missing) | | (unavailable | 00:44 | [facility] | | | | + + + + + + + + + | Result panel 81 | + + + + + +--------+ + + | | 2021-12-12 | [facility] | 7.28 | (missing) | (missing) | | (unavailable | 22:04 | [facility] | | | | + + + +--------+ + + + + | Result panel 82 | + + + + + +--------+ + + | | 2021-12-12 | [facility] | 54.9 | (missing) | (missing) | | (unavailable | 22:04 | [facility] | | | | + + + +--------+ + + + + | Result panel 83 | + + + + + +--------+ + + | | 2021-12-12 | [facility] | < 15 | (missing) | (missing) | | (unavailable | 22:04 | [facility] | | | | + + + +--------+ + + + + | Result panel 84 | + + + + + +--------+ + + | | 2021-12-12 | [facility] | 26.0 | (missing) | (missing) | | (unavailable | 22:04 | [facility] | | | | + + + +--------+ + + + + | Result panel 85 | + + + + + +------+ + + | | 2021-12-12 | [facility] | -1 | (missing) | (missing) | | (unavailable | 22:04 | [facility] | | | | + + + +------+ + + + + | Result panel 86 | + + + + + +------+ + + | | 2021-12-12 | [facility] | 99 | (missing) | (missing) | | (unavailable | 22:04 | [facility] | | | | + + + +------+ + + + + | Result panel 87 | + + + + + +------+ + + | | 2021-12-12 | [facility] | 28 | (missing) | (missing) | | (unavailable | 22:04 | [facility] | | | | + + + +------+ + + + + | Result panel 88 | + + + + + +--------+ + + | | 2021-12-12 | [facility] | 7.32 | (missing) | (missing) | | (unavailable | 22:04 | [facility] | | | | + + + +--------+ + + + + | Result panel 89 | + + + + + +--------+ + + | | 2021-12-13 | [facility] | 18.1 | (missing) | (missing) | | (unavailable | 05:05 | [facility] | | | | + + + +--------+ + + + + | Result panel 90 | + + + + + +--------+ + + | | 2021-12-13 | [facility] | 4.10 | (missing) | (missing) | | (unavailable | 05:05 | [facility] | | | | + + + +--------+ + + + + | Result panel 91 | + + + + + +--------+ + + | | 2021-12-13 | [facility] | 11.2 | (missing) | (missing) | | (unavailable | 05:05 | [facility] | | | | + + + +--------+ + + + + | Result panel 92 | + + + + + +--------+ + + | | 2021-12-13 | [facility] | 34.6 | (missing) | (missing) | | (unavailable | 05:05 | [facility] | | | | + + + +--------+ + + + + | Result panel 93 | + + + + + +--------+ + + | | 2021-12-13 | [facility] | 84.5 | (missing) | (missing) | | (unavailable | 05:05 | [facility] | | | | + + + +--------+ + + + + | Result panel 94 | + + + + + +--------+ + + | | 2021-12-13 | [facility] | 27.2 | (missing) | (missing) | | (unavailable | 05:05 | [facility] | | | | + + + +--------+ + + + + | Result panel 95 | + + + + + +--------+ + + | | 2021-12-13 | [facility] | 32.2 | (missing) | (missing) | | (unavailable | 05:05 | [facility] | | | | + + + +--------+ + + + + | Result panel 96 | + + + + + +--------+ + + | | 2021-12-13 | [facility] | 14.7 | (missing) | (missing) | | (unavailable | 05:05 | [facility] | | | | + + + +--------+ + + + + | Result panel 97 | + + + + + +-------+ + + | | 2021-12-13 | [facility] | 172 | (missing) | (missing) | | (unavailable | 05:05 | [facility] | | | | + + + +-------+ + + Social History No information. Vital Signs + + + +---------+ | date | measurement | value | units | + + + +---------+ | 2021-10-30 00:00 | BMI | 32.6 | kg/m2 | + + + +---------+ | 2021-10-30 00:00 | BP_diastolic | 88 | mmHg | + + + +---------+ | 2021-10-30 00:00 | BP_systolic | 104 | mmHg | + + + +---------+ | 2021-10-30 00:00 | heart_rate | 97 | /min | + + + +---------+ | 2021-10-30 00:00 | height_metric | 160.02 | cm | + + + +---------+ | 2021-10-30 00:00 | height_standard | 63 | in | + + + +---------+ | 2021-10-30 00:00 | o2_saturation | 100 | % | + + + +---------+ | 2021-10-30 00:00 | respiration_rate | 16 | /min | + + + +---------+ | 2021-10-30 00:00 | temperature_metric | 36.78 | C | | | | | | + + + +---------+ | 2021-10-30 00:00 | | 98.2 | F | | | temperature_standar | | | | | d | | | + + + +---------+ | 2021-10-30 00:00 | weight_metric | 83.6 | kg | + + + +---------+ | 2021-10-30 00:00 | weight_standard | 184.31 | lb | + + + +---------+ | 2021-12-12 00:00 | BMI | 32.8 | kg/m2 | + + + +---------+ | 2021-12-12 00:00 | BP_diastolic | 56 | mmHg | + + + +---------+ | 2021-12-12 00:00 | BP_systolic | 130 | mmHg | + + + +---------+ | 2021-12-12 00:00 | heart_rate | 100 | /min | + + + +---------+ | 2021-12-12 00:00 | height_metric | 160 | cm | + + + +---------+ | 2021-12-12 00:00 | height_standard | 62.99 | in | + + + +---------+ | 2021-12-12 00:00 | o2_saturation | 97 | % | + + + +---------+ | 2021-12-12 00:00 | respiration_rate | 16 | /min | + + + +---------+ | 2021-12-12 00:00 | temperature_metric | 36.5 | C | | | | | | + + + +---------+ | 2021-12-12 00:00 | | 97.7 | F | | | temperature_standar | | | | | d | | | + + + +---------+ | 2021-12-12 00:00 | weight_metric | 83.9 | kg | + + + +---------+ | 2021-12-12 00:00 | weight_standard | 184.97 | lb | + + + +---------+ | 2022-06-12 00:00 | BMI | 33.6 | kg/m2 | + + + +---------+ | 2022-06-12 00:00 | BP_diastolic | 77 | mmHg | + + + +---------+ | 2022-06-12 00:00 | BP_systolic | 118 | mmHg | + + + +---------+ | 2022-06-12 00:00 | heart_rate | 95 | /min | + + + +---------+ | 2022-06-12 00:00 | height_metric | 152.4 | cm | + + + +---------+ | 2022-06-12 00:00 | height_standard | 60 | in | + + + +---------+ | 2022-06-12 00:00 | o2_saturation | 100 | % | + + + +---------+ | 2022-06-12 00:00 | respiration_rate | 16 | /min | + + + +---------+ | 2022-06-12 00:00 | temperature_metric | 36.56 | C | | | | | | + + + +---------+ | 2022-06-12 00:00 | | 97.8 | F | | | temperature_standar | | | | | d | | | + + + +---------+ | 2022-06-12 00:00 | weight_metric | 78 | kg | + + + +---------+ | 2022-06-12 00:00 | weight_standard | 171.96 | lb | + + + +---------+"
--- OUTSIDE RECORDS SUMMARY | ~2022-09-12 | XMS | Continuity of Care Document ---
Demographics + + + | Address | [address] | | | [place] [address] | + + + | Preferred Language | Unknown | + + + | Marital Status | Never | + + + | Protestant Affiliation | Unknown | + + + | Race | White | + + + | Ethnic Group | Not or | + + + Author + + + | Author | [place] | + + + | Organization | [facility] [place] | + + + | Address | [address] | | | [place] [address] | + + + | Phone | | + + + Care Team Providers + + + + | Care Quality Assurance [facility] Analyst Name | Role | Phone | + [...] | (no severity) | | | | [facility] | | | | | | [facility] [...] + | 2019-07-06 00:00 | OXYCODONE | [facility] | | | HCL/ACETAMINOPHEN | | + + + + | 2019-07-06 00:00 | ACETAMINOPHEN | [facility] | + + + + | 2019-07-06 00:00 | FLUCONAZOLE | [facility] | + + + + | 2016-12-21 00:00 | BENZONATATE | [facility] | + + + + | 2017-04-27 00:00 | AZITHROMYCIN | [facility] | + + + + | 2017-04-27 00:00 | METHYLPREDNISOLONE | [facility] | + + + + | 2019-07-06 00:00 | CLINDAMYCIN HCL | [facility] | + + + + | 2019-07-06 00:00 | METRONIDAZOLE | [facility] | + + + + | 2021-10-30 00:00 | NITROFURANTOIN MONOHYD | [facility] | | | MACROCR | | + + + + | 2017-04-27 00:00 | Codeine | [facility] | | | Phosphate/Guaifenesin | | + + + + Problems + + + + | date | description | facility | + + + + | 2016-07-26 00:00 | Urinary tract infection | [facility] | + + + + | 2016-12-21 00:00 | Adverse effect of drug | [facility] | + + + + | 2017-04-27 00:00 | Serous otitis media | [facility] | + + + + | 2017-04-27 00:00 | Bronchitis | [facility] | + + + + | 2017-08-02 00:00 | Encounter for medical | [facility] | | | screening examination | | + + + + | 2022-06-12 00:00 | Sprain of ankle | [facility] | + + + + Procedures + + + + | date | description | facility | + + + + | 2021-12-12 00:00 | section | [facility] | + + + + | 2021-12-12 00:00 | section | [facility] | + + + + Results/Labs +--------+--------+ [...]
[2022-09-12] MEDS ORDERED: CEPHALEXIN500 M1 PO (19:43)
[2022-09-12 20:00] VITALS: BP 117/44
== END 2022-09-12 20:03 | disposition home or self-care (01) ==
LOC: ED 16:44
DX: S61.412A Laceration without foreign body of left hand, initial encounter (principal); L03.114 Cellulitis of left upper limb; W26.0XXA Contact with knife, initial encounter; Z88.8 Allergy status to other drugs, medicaments and biological substances
CPT/HCPCS: 90471; 90715; 99282-25; A9270